=== PATIENT | male | born 1930 | race Caucasian/White ===

== ENCOUNTER 2021-11-22 09:49 | Observation (INO) | payer MEDICARE ==
[~2021-11-22] VITALS: Ht 170.2 cm; Wt 70.5 kg
--- NOTE | 2021-11-22 10:15 | NUR ---
PATIENT TO ROOM VIA WHEELCHAIR.
--- NOTE | 2021-11-22 11:03 | NUR ---
Lab at bedside
[2021-11-22 11:14] LABS: HEMATOCRIT 32.8 % (39.0-50.0); HEMOGLOBIN 11.2 g/dl (14.0-18.0); IMMATURE GRANULOCYTES 0.1 % (0.0-5.0); MEAN CELL VOLUME 95.1 fL CALC (80.0-100.0); MEAN CORPUSCULAR HGB 32.5 pG CALC (26.0-32.0); MEAN CORPUSCULAR HGB CONC 34.1 g/dL CAL (32.0-36.0); NEUT# 6.13 thou/uL (1.82-7.42); RED BLOOD COUNT 3.45 mill/uL (4.70-6.10); RED CELL DISTRI WIDTH 13.8 % (11.5-15.5)
[2021-11-22 11:28] LABS: ALBUMIN 3.9 g/dL (3.2-5.0); ALKALINE PHOSPHATASE 64 u/l (38-126); ANION GAP 14 (6-22 (CALC)); BUN 23 mg/dL (8-23); BUN/CREATININE RATIO 23 (12-20 (CALC)); CARBON DIOXIDE 25 mmol/l (22-30); CHLORIDE 101 mmol/l (95-108); GFR > 60 ML/MIN (>=60 (CALC)); GFR FOR AFR.AMER. > 60 ML/MIN (>=60 (CALC)); POTASSIUM 4.3 mmol/l (3.5-5.1); SGOT/AST 30 u/l (19-48); SODIUM 136 mmol/l (137-146)
[2021-11-22 11:46] LABS: ACT PARTIAL THROMBO TIME 28.5 SECONDS (20.0-32.5)
--- NOTE | 2021-11-22 12:00 | NUR ---
CBI started, patient running clear, pink urine with infrequent small clots, tolerated well.
[2021-11-22 12:15] LABS: URINE BLOOD DIPSTICK LARGE (NEGATIVE); URINE COLOR BROWN; URINE GLUCOSE - DIPSTICK 100 mg/dL (NEGATIVE); URINE KETONE 15 mg/dL (NEGATIVE); URINE PROTEIN - DIPSTICK >=300 mg/dL (NEG-TRACE)
[2021-11-22 12:17] LABS: URINE LEUK ESTERASE MODERATE (NEGATIVE); URINE NITRITE - DIPSTICK POSITIVE (Negative)
[2021-11-22 12:18] LABS: URINE BILIRUBIN - DIPSTICK NEGATIVE (NEGATIVE)
[2021-11-22 12:19] LABS: URINE RBC TNTC RBC/hpf (0-5)
--- NOTE | 2021-11-22 13:00 | NUR ---
PATIENT PASSED CLOT AND URINE STARTED DRAINING DARK RED. PER DR ALBARRAN INITIATE SECOND BAG TO IRRIGATE OLSON.
--- NOTE | 2021-11-22 14:10 | NUR ---
EMPTIED 2000 MLS FROM OLSON BAG, REMAINS DEEP RED IN COLOR.
--- NOTE | 2021-11-22 15:00 | NUR ---
cbi continued; manual irrigation required for moderate amount of clots; pt tolerated well; castillo red drainage noted
[2021-11-22] MEDS ORDERED: ALLOPURINOL100 MG PO (15:23)
[2021-11-22] MEDS ORDERED: ENALAPRIL10 MG PO (15:24)
[2021-11-22] MEDS ORDERED: NAPROXEN375 MG PO (15:24)
[2021-11-22] MEDS ORDERED: HYDROCHLORIDE PO (15:25)
[2021-11-22] MEDS ORDERED: GARLIC1000 MG PO (15:25)
[2021-11-22] MEDS ORDERED: EYE PROMISE PO (15:26)
--- NOTE | 2021-11-22 16:00 | NUR ---
cbi continued; pt updated on poc and plan to admit; dr Ladd at bedside
--- NOTE | 2021-11-22 17:00 | NUR ---
pt resting quietly; cbi continued; cheery red drainage with clots and sediment noted
--- NOTE | 2021-11-22 19:05 | NUR ---
PATIENT ADMITTED TO [facility] VIA STRETCHER TO ROOM 280. PATIENT SCOOTED SELF TO BED. ALERT AND ORIENTED. ABLE TO MAKE NEEDS KNOWN. ASSESSMENT COMPLETE. ORIENTED PATIENT TO ROOM, CALL LIGHT AND SURROUNDINGS. ICE WATER AT BEDSIDE. CALL LIGHT WITHIN REACH. CBI REMAINS FLOWING CONTINUOUS.
--- NOTE | 2021-11-22 19:05 | NUR ---
Admission Note Report Given to: DAVON Manzo Transported by: Wheelchair x Stretcher Transported with: x Nurse Transporter x Patent IV O2 x Ultrasound Spec Location: ICU x MS2 with CBI continue
--- NOTE | 2021-11-22 23:29 | NUR ---
PATIENT RESTING IN BED. NO COMPLAINTS VOICED AT THIS TIME. CBI REMAINS IN PLACE. CALL LIGHT AND BELONGINGS REMAIN IN REACH.
[2021-11-23] VITALS: BP 116/67
[2021-11-23 03:50] VITALS: BP 123/66
--- NOTE | 2021-11-23 05:00 | NUR ---
PATIENT RESTING IN BED. IRRIGATED PATIENT MANUALLY X1 DUE TO CLOT IN OLSON TUBING CAUSING PATIENT DISCOMFORT. EFFECTIVE OUTCOME. CBI CONTINUES. IVF REMAIN. BED REMAINS IN LOW POSITION WITH CALL LIGHT IN REACH.
[2021-11-23 05:29] LABS: HEMATOCRIT 31.9 % (39.0-50.0); HEMOGLOBIN 10.8 g/dl (14.0-18.0); MEAN CELL VOLUME 96.4 fL CALC (80.0-100.0); MEAN CORPUSCULAR HGB 32.6 pG CALC (26.0-32.0); MEAN CORPUSCULAR HGB CONC 33.9 g/dL CAL (32.0-36.0); RED BLOOD COUNT 3.31 mill/uL (4.70-6.10); RED CELL DISTRI WIDTH 13.9 % (11.5-15.5)
[2021-11-23 05:46] LABS: ANION GAP 16 (6-22 (CALC)); BUN 20 mg/dL (8-23); BUN/CREATININE RATIO 23 (12-20 (CALC)); CARBON DIOXIDE 22 mmol/l (22-30); CHLORIDE 105 mmol/l (95-108); CREATININE 0.8 mg/dL (0.7-1.3); GFR > 60 ML/MIN (>=60 (CALC)); GFR FOR AFR.AMER. > 60 ML/MIN (>=60 (CALC)); SODIUM 139 mmol/l (137-146)
[2021-11-23 07:14] VITALS: BP 144/77
--- NOTE | 2021-11-23 08:00 | NUR ---
ASSESSMENT DONE. PATIENT IS ALERT AND ORIENT X3. PATIENT DENIES PAIN. RESPS EVEN AND UNLABORED. TELE IN PLACE. CBI INFUSING WELL AND OLSON IS PATENT WITH CRANBERRY COLOR NOTED. NO BLOOD CLOTS NOTED. PATIENT DENIES NEEDS. SAFETY PRECAUTIONS REINFORCED AND CALL LIGHT IN REACH.
--- NOTE | 2021-11-23 10:30 | NUR ---
REORINET PATIENT WAS FORGETFUL. CBI INFUSING WELL AND OLSON IS PATENT WITH PEACH COLOR. SMALL BLOOD CLOT NOTED. PATIENT DENIES PAIN OR PAIN. CALL LIGHT IN REACH.
[2021-11-23 10:56] VITALS: BP 129/73
--- NOTE | 2021-11-23 11:30 | NUR ---
DR. MEDINA AND AT BEDSIDE TO ASSESS PATIENT. CALL LIGHT IN REACH.
--- NOTE | 2021-11-23 12:40 | NUR ---
WESLEY IS PATENT WITH CRANBERRY COLOR. PATIENT DENIES NEEDS. CALL LIGHT IN REACH.
[2021-11-23 15:47] VITALS: BP 138/75
--- NOTE | 2021-11-23 16:00 | NUR ---
PATIENT IS RESTING IN BED AND DENIES PAIN. CBI INFUSING WELL AND OLSON IS PATENT WITH CRANBERRY COLOR URINE. PATIENT DENIES NEEDS. CALL LIGHT IN REACH.
--- NOTE | 2021-11-23 18:19 | NUR ---
1814 CARMEN FROM ER CALLED PATIENT HAD A A PAUSE ON HIS TELE READING AND FAX THE TELE STRIP. PATIENT IS EATING HIS DINNER WITH NO DISTRESS NOTED. VS OBTAIN P- 90 AND BP 174/89. CALL LIGHT IN REACH. [address] MEDINA ABOUT PATIENT BP AND TELE STRIP. ORDERS RECEIVED FOR A EKG.
[2021-11-23 19:45] VITALS: BP 152/84
--- NOTE | 2021-11-23 19:45 | NUR ---
PATIENT SITTING UP IN BED. CBI CONTINUES. OUTPUT APPEARS CRANBERRY IN COLOR. NO COMPLAINTS OF PAIN VOICED. NO SIGNS OF DISTRESS NOTED. VS DONE. ASSESSMENT COMPLETE. FRESH ICE WATER AT BED SIDE. CALL LIGHT AND BELONGINGS REMAIN IN REACH. NOTIFIED SUPPLY TECHNICIAN PROVIDER OF PATIENTS EKG RESULTS HE ORDERED AT 1910.
--- NOTE | 2021-11-23 21:40 | NUR ---
NOTIFIED HEALTH/SAFETY JOB TITLES MD OF PATIENTS TELE READING, PAUSE. PROVIDER PUT IN NEW ORDERS FOR REPEAT BMP AND MAGNESIUM. PATIENT ASYMPTOMATIC, RESTING IN BED.
[2021-11-23 22:27] LABS: ANION GAP 12 (6-22 (CALC)); BUN 18 mg/dL (8-23); BUN/CREATININE RATIO 24 (12-20 (CALC)); CARBON DIOXIDE 24 mmol/l (22-30); CHLORIDE 107 mmol/l (95-108); CREATININE 0.8 mg/dL (0.7-1.3); GFR > 60 ML/MIN (>=60 (CALC)); GFR FOR AFR.AMER. > 60 ML/MIN (>=60 (CALC)); MAGNESIUM 1.7 mg/dL (1.6-2.3); POTASSIUM 3.9 mmol/l (3.5-5.1); SODIUM 138 mmol/l (137-146)
[2021-11-24] VITALS: BP 178/94
--- NOTE | 2021-11-24 00:10 | NUR ---
PROVIDER CALLED FOR UPDATE ON PATIENT. INFORMED PROVIDER OF PATIENT SCREAMING IN ROOM OUT INTO THE HALLWAY, WITH CONFUSION. PATIENT ALSO WAS ON THE PHONE WITH HIS SON. PATIENT WAS NOT SURE WHAT WAS GOING ON IN THE HALLS OR WHO WAS WALKING BY AND WHO WALKED IN THE ROOM RESPONDING TO HIS SCREAMING. INFORMED PROVIDER MANUAL IRRIGATION WAS DONE DUE TO PATIENT PAIN DUE TO CLOTTING AT TUBING INSERTION SITE. AFTER IRRIGATION PROPER IRRIGATION FLOW RETURNED. ALSO INFORMED PROVIDER OF PATIENTS HOME MEDS AND ALSO HIS ELEVATED BP. INFORMED PROVIDER I WOULD REPEAT PATIENTS BLOOD PRESSURE AFTER HE CALMED DOWN. PATIENT HAS SINCE APOLOGIZED.
[2021-11-24 00:50] VITALS: BP 154/83
--- NOTE | 2021-11-24 02:44 | NUR ---
PATIENT THOUGHT THE BATHROOM DOOR LOOK WAS A BUG. SHOWED PATIENT THE LOCK WASNT A BUG. PATIENT STATED, ''OH GOSH, IM SEEING THINGS''. PATIENT SEEMS CONFUSED AT TIMES. DAY SHIFT NURSE REPORTED SAME THING.
[2021-11-24 03:42] VITALS: BP 156/86
--- NOTE | 2021-11-24 03:42 | NUR ---
PATIENT RESTING IN BED. CALM. NO COMPLAINTS AT THIS TIME. DENIES PAIN. CBI CONTINUES. COLOR RANGES FROM PEACH TO CRANBERRY WITH SMALL CLOTS AT TIMES. CALL LIGHT AND BELONGINGS REMAIN IN REACH.
--- NOTE | 2021-11-24 05:10 | NUR ---
SPOKE WITH PATIENTS SON ON THE PHONE AND UPDATED HIM ON HIS DADS STATUS. PATIENT KEPT CALLING HIM.
--- NOTE | 2021-11-24 06:42 | NUR ---
PATIENT OBSERVED REMOVING HIS BLANKETS. ''IM LOOKING FOR A SMALL WIRE''. BED ALARM ACTIVATED DUE TO PATIENT SAFETY. WILL INFORM ONCOMING NURSE.
[2021-11-24 07:21] LABS: HEMATOCRIT 31.6 % (39.0-50.0); HEMOGLOBIN 10.8 g/dl (14.0-18.0); MEAN CELL VOLUME 93.8 fL CALC (80.0-100.0); MEAN CORPUSCULAR HGB CONC 34.2 g/dL CAL (32.0-36.0); RED BLOOD COUNT 3.37 mill/uL (4.70-6.10); RED CELL DISTRI WIDTH 13.4 % (11.5-15.5)
[2021-11-24 07:30] VITALS: BP 139/94
--- NOTE | 2021-11-24 07:30 | NUR ---
PATIENT LAYING IN BED AT THIS TIME. PATIENT DENIES ANY PAIN CURRENTLY. PATIENT HAS CBI GOING AT THIS TIME AND URINARY CATH TUBE IS FREE FROM CLOTS AND URINE IS PEACHY IN COLOR AT THIS TIME. PATIENT IS ALERT X 3 CALL LIGHT IS WIHTIN REACH. PATIENT HAS TELE MONITOR IN PLACE AND BEING MONITORED BY ED. LUNG MONTERO ARE CLEAR AND BOWEL SOUNDS PRESENT IN ALL FOUR QUADS AT THIS TIME. WILL CONTINUE TO MONITOR.
[2021-11-24 07:53] LABS: ANION GAP 10 (6-22 (CALC)); BUN 14 mg/dL (8-23); BUN/CREATININE RATIO 21 (12-20 (CALC)); CARBON DIOXIDE 24 mmol/l (22-30); CHLORIDE 104 mmol/l (95-108); CREATININE 0.7 mg/dL (0.7-1.3); GFR > 60 ML/MIN (>=60 (CALC)); GFR FOR AFR.AMER. > 60 ML/MIN (>=60 (CALC)); POTASSIUM 3.7 mmol/l (3.5-5.1); SODIUM 135 mmol/l (137-146)
--- NOTE | 2021-11-24 09:36 | NUR ---
PATIENT LAYING IN BED AT THIS TIME. ALERT TO NAME AT THIS TIME AND PLACE AND IS DIRECTABLE. BED ALARM ENGAGED. CBI NUMBER BAG 36 STARTED AT THIS TIME. URINE OUTPUT IS 350 AND IS LIGHT PINK IN COLOR. SIDERAILS ARE UP CALL LIGHT IS WITHIN REACH. WILL CONTINUE TO MONITOR.
[2021-11-24 10:37] VITALS: BP 133/84
--- NOTE | 2021-11-24 10:43 | NUR ---
HAND-OFF REPORT FROM ESTELLA. PT AWAKE AND ALERT BUT PLEASANTLY CONFUSED, TELE IN PLACE, IVF INFUSING, CBI IN PROGRESS ON BAG # 36, DRAINAGE IS PINK WIT NO CLOTS AT THIS TIME, BED ALARM ON, SON IS VISITING NOW AND WANTS TO TAKE PT HOME FOR APPOINTMENT IN [place], MEDICAL TEAM ROUNDING AT THIS TIME AND WILL BE IN ROOM SOON TO DISCUSS PLANS (THIS ADVICE GIVEN TO PT AND FAMILY AT BEDSIDE).
[2021-11-24] MEDS ORDERED: KEFLEX500 MG PO (12:58)
== END 2021-11-24 13:48 | disposition home or self-care (01) ==
LOC: ED 09:49 → ED-I 11:34 → ED 11:34 → ED-I 14:19 → ED 14:31 → MS2 14:32
PROVIDERS: ADMIT Internal Medicine; ATTEND Internal Medicine
PROC: 0T9B70Z Drainage of Bladder with Drainage Device, Via Natural or Artificial Opening (ICD-10-PCS; principal; 2021-11-22)
DX: N39.0 Urinary tract infection, site not specified (principal); R31.0 Gross hematuria; D64.9 Anemia, unspecified; I10 Essential (primary) hypertension; N40.1 Benign prostatic hyperplasia with lower urinary tract symptoms; R33.8 Other retention of urine; R39.14 Feeling of incomplete bladder emptying; F03.90 Unspecified dementia, unspecified severity, without behavioral disturbance, psychotic disturbance, mood disturbance, and anxiety; M10.9 Gout, unspecified; B96.20 Unspecified Escherichia coli [E. coli] as the cause of diseases classified elsewhere; Z87.891 Personal history of nicotine dependence; Z87.440 Personal history of urinary (tract) infections; Z85.51 Personal history of malignant neoplasm of bladder; Z20.822 Contact with and (suspected) exposure to COVID-19
CPT/HCPCS: G0378